=== PATIENT | male | born 1975 | race Hispanic/Latino ===

== ENCOUNTER 2024-04-22 07:46 | Emergency (ER) | payer OTHER ==
--- NOTE | 2024-04-22 08:17 | ER ---
Nurse's Notes [facility] Name: Te Acosta Age: 48 yrs Sex: Male : 1975 Arrival Date: 04/22/2024 Time: 07:46 Bed 5 Private MD: Diagnosis: Herpes zoster;Right sided chest pain;Right upper back pain Presentation: 04/22 08:05 Chief complaint: Patient states: superficial chest pain x1week. Coronavirus screen: At rs5 this time, the client does not indicate any symptoms associated with coronavirus-19. Ebola Screen: No symptoms or risks identified at this time. Initial Sepsis Screen: Does the patient meet any 2 criteria? No. Patient's initial sepsis screen is negative. Does the patient have a suspected source of infection? No. Patient's initial sepsis screen is negative. Risk Assessment: Do you want to hurt yourself or someone else? Patient reports no desire to harm self or others. Onset of symptoms was April 15, 2024. 08:05 Method Of Arrival: Ambulatory rs5 08:05 Acuity: TAYLOR 3 rs5 Triage Assessment: 07:54 General: Appears in no apparent distress. uncomfortable, Behavior is calm, cooperative. rs5 Pain: Complains of pain in chest. Cardiovascular: Patient's skin is warm and dry. Rhythm is regular. Historical: - Allergies: 08:06 No Known Allergies; rs5 - PMHx: 08:06 None; rs5 - PSHx: 08:06 right knee surgery; rs5 - Immunization history:: Adult Immunizations up to date. - Infectious Disease History:: Denies. - Social history:: Smoking status: Patient denies any tobacco usage or history of. Screenin:54 [facility] ED Fall Risk Assessment (Adult) History of falling in the last 3 months, rs5 including since admission No falls in past 3 months (0 pts) Confusion or Disorientation No (0 pts) Intoxicated or Sedated No (0 pts) Impaired Gait No (0 pts) Mobility Assist Device Used No (0 pt) Altered Elimination No (0 pt) Score/Fall Risk Level 0 - 2 = Low Risk Oriented to surroundings, Maintained a safe environment. 07:54 Abuse screen: Denies threats or abuse. Nutritional screening: No deficits noted. rs5 Tuberculosis screening: No symptoms or risk factors identified. Assessment: 07:54 General: Appears in no apparent distress. uncomfortable, Behavior is cooperative. Pain: rs5 Complains of pain in chest Pain does not radiate. Pain currently is 8 out of 10 on a pain scale. Quality of pain is described as aching, Pain began x1 week. Neuro: Level of Consciousness is awake, alert, obeys commands, Oriented to person, place, time, situation. Cardiovascular: Patient's skin is warm and dry. Rhythm is regular. Respiratory: Airway is patent Respiratory effort is even, unlabored, Respiratory pattern is regular, symmetrical. GI: Abdomen is round non-distended, Abd is soft and non tender X 4 quads. : No signs and/or symptoms were reported regarding the genitourinary system. EENT: No signs and/or symptoms were reported regarding the EENT system. Derm: Skin is intact, Skin is pink, warm \T\ dry. Musculoskeletal: Range of motion: intact in all extremities. 08:28 Reassessment: Patient and/or family updated on plan of care and expected duration. Pain rs5 level reassessed. Patient is alert, oriented x 3, equal unlabored respirations, skin warm/dry/pink. Patient states feeling better. Patient states symptoms have improved. Vital Signs: 08:05 BP 122 / 90; Pulse 80; Resp 18; Temp 98(O); Pulse Ox 99% on R/A; rs5 08:28 BP 128 / 88; Pulse 77; Resp 18; Pulse Ox 99% on R/A; rs5 ED Course: 07:49 Patient arrived in ED. ts1 07:53 Brad Jaimes, RN is Primary Nurse. rs5 07:54 Melissa Ritchie MD is Attending Physician. sd2 07:54 No provider procedures requiring assistance completed. rs5 07:54 Patient has correct armband on for positive identification. Placed in gown. Bed in low rs5 position. Call light in reach. Side rails up X2. Client placed on continuous cardiac and pulse oximetry monitoring. NIBP monitoring applied. dag coater on. Pulse ox on. 07:57 EKG done, by ED staff, reviewed by Melissa Ritchie MD. hb 08:00 Inserted saline lock: 22 gauge in left hand, using aseptic technique. rs5 08:06 Triage completed. rs5 08:30 IV discontinued, intact, bleeding controlled, No redness/swelling at site. Pressure rs5 dressing applied. Administered Medications: 08:15 Drug: Ketorolac IVP 15 mg IVP once Route: IVP; Site: left hand; rs5 08:28 Follow up: Response: No adverse reaction; Pain is decreased rs5 Medication: 08:28 VIS not applicable for this client. rs5 Outcome: 08:16 Discharge ordered by . sd2 08:30 Discharged to home ambulatory, rs5 08:30 Condition: stable 08:30 Discharge instructions given to patient, Instructed on discharge instructions, follow up and referral plans. medication usage, Demonstrated understanding of instructions, follow-up care, medications, Prescriptions given X 4, 08:34 Patient left the ED. rs5 Signatures: Rocío Gonzales RN RN hb Melissa Ritchie MD MD sd2 Brad Jaimes RN RN rs5 Leeann Marcano PAS PAS ts1 Corrections: (The following items were deleted from the chart) 08:03 08:02 Client placed on continuous cardiac and pulse oximetry monitoring. NIBP hb monitoring applied. dag coater on. Pulse ox on. NIBP on. hb 08:28 08:27 Ketorolac IVP 15 mg IVP in left hand rs5 rs5
--- NOTE | 2024-04-22 08:17 | EDPHYS ---
Physician Documentation [facility] Name: Te Acosta Age: 48 yrs Sex: Male : 1975 Arrival Date: 04/22/2024 Time: 07:46 Bed 5 Private MD: ED Physician Melissa Ritchie HPI: 04/22 08:08 This 48 yrs old Male presents to ER via Ambulatory with complaints of Chest sd2 Pain, Pain on right side of chest. 08:08 The patient or guardian reports chest pain that is located primarily in the anterior sd2 aspect of right upper chest. Onset: last week. The pain radiates to the right shoulder. Associated signs and symptoms: The patient has no apparent associated signs or symptoms. The chest pain is described as burning. Duration: The patient or guardian reports a single episode, that is still ongoing, and worsening. Modifying factors: The symptoms are alleviated by nothing. the symptoms are aggravated by activity, palpation of area. Associated rash noted to R scapular area; no diaphoresis, n/v. No recent travel; no prior cardiac hx. Historical: - Allergies: 08:06 No Known Allergies; rs5 - PMHx: 08:06 None; rs5 - PSHx: 08:06 right knee surgery; rs5 - Immunization history:: Adult Immunizations up to date. - Infectious Disease History:: Denies. - Social history:: Smoking status: Patient denies any tobacco usage or history of. ROS: 08:08 Constitutional: Negative for fever, chills, and weight loss, Eyes: Negative for injury, sd2 pain, redness, and discharge, Cardiovascular: Positive for chest pain, Negative for palpitations, and edema, Respiratory: Negative for shortness of breath, cough, wheezing. Abdomen/GI: Negative for abdominal pain, nausea, vomiting, diarrhea. Back: Negative for injury and positive for pain, MS/Extremity: Negative for injury and deformity, Skin: Negative for injury, Positive for rash, and discoloration, Neuro: Negative for headache, numbness and tingling. Exam: 08:08 Constitutional: This is a well developed, well nourished patient who is awake, alert, sd2 and in no acute distress. Head/Face: Normocephalic, atraumatic. Eyes: EOMI, normal conjunctiva bilaterally Chest/axilla: Normal chest wall appearance and motion. Hyperesthetic with palpation of the R anterior and posterior chest wall Cardiovascular: Regular rate and rhythm with a normal S1 and S2. No gallops, murmurs, or rubs. 2+ distal pulses. Respiratory: Lungs have equal breath sounds bilaterally, clear to auscultation and percussion. No rales, rhonchi or wheezes noted. No increased work of breathing, no retractions or nasal flaring. Abdomen/GI: Soft, non-tender, with normal bowel sounds. No guarding or rebound. No evidence of tenderness throughout. Skin: Warm, dry with normal turgor. Vesicular rash noted to the R mid back area overlying the scapula with TTP, blanching MS/ Extremity: Pulses equal, no cyanosis. Neurovascular intact. Full, normal range of motion. Psych: Awake, alert, with orientation to person, place and time. Behavior, mood, and affect are within normal limits. 08:08 ECG was reviewed by the Attending Physician. NSR, rate 69, no STEMI criteria or significant ST-T wave changes Vital Signs: 08:05 BP 122 / 90; Pulse 80; Resp 18; Temp 98(O); Pulse Ox 99% on R/A; rs5 08:28 BP 128 / 88; Pulse 77; Resp 18; Pulse Ox 99% on R/A; rs5 MDM: 07:54 Patient medically screened. sd2 08:08 Differential diagnosis: acute myocardial infarction, coronary artery disease chest wall sd2 pain, gastritis, herpes zoster, pericarditis, pleurisy, pneumonia, pulmonary embolus, thoracic aortic disection, among others. The patient was not given aspirin in the Emergency Department. Data reviewed: vital signs, nurses notes, EKG. I considered the following discharge prescriptions or medication management in the emergency department Medications were administered in the Emergency Department. See MAR. Independent interpretation of the following test(s) in the Emergency Department EKG: See my EKG interpretation above. Test considered but Not performed: Labs: labs and XR considered but pt declined after discovering shingles rash as this is most likely source of patient's pain. X-ray: . Counseling: I had a detailed discussion with the patient and/or guardian regarding the historical points, exam findings, and any diagnostic results supporting the discharge/admit diagnosis, the need for outpatient follow up, to return to the emergency department if symptoms worsen or persist or if there are any questions or concerns that arise at home. ED course: Clinical presentation consistent with shingles. Pt with no significant risk factors for CAD at this time. Pt declined further workup. Will tx with Toradol here and antivirals and steroids at home. Pt comfortable with plan for discharge and outpatient follow up. Verbalizes understanding of discharge plan and strict return precautions.. Administered Medications: 08:15 Drug: Ketorolac IVP 15 mg IVP once Route: IVP; Site: left hand; rs5 08:28 Follow up: Response: No adverse reaction; Pain is decreased rs5 Disposition Summary: 04/22/24 08:16 Discharge Ordered Problem: new sd2 Symptoms: have improved sd2 Condition: Stable sd2 Diagnosis - Herpes zoster sd2 - Right sided chest pain sd2 - Right upper back pain sd2 Followup: sd2 - With: Private Physician - When: 2 - 3 days - Reason: Recheck today's complaints, Continuance of care, Re-evaluation by your physician Discharge Instructions: - Discharge Summary Sheet sd2 Forms: - Medication Reconciliation Form sd2 - Antibiotic Education sd2 - Prescription Opioid Use sd2 - Patient Portal Instructions sd2 - Leadership Thank You Letter sd2 Prescriptions: - valacyclovir 1 gram Oral tablet - take 1 tablet ORAL route every 8 hours for 7 days; 21 tablet; Refills: 0, sd2 Product Selection Permitted - Ibuprofen 800 mg Oral Tablet - take 1 tablet ORAL route every 8 hours As needed take with food; 30 tablet; sd2 Refills: 0, Product Selection Permitted - Tramadol 50 mg Oral tablet - take 1 tablet ORAL route every 6 hours As needed as needed; 12 tablet; Refills: sd2 0, Product Selection Permitted - Medrol (Nilay) 4 mg Oral Tablets, Dose Pack - take 1 tablet ORAL route as directed - follow package instructions; 1 packet; sd2 Refills: 0, Product Selection Permitted Signatures: Melissa Ritchie MD MD sd2 Brad Jaimes RN RN rs5
[2024-04-22] MEDS ORDERED: KETOROLAC 30 MG/ML INJ ONE (08:22)
[2024-04-22 08:55] VITALS: BP 128/88; TEMP 98; O2SAT 99
--- NOTE | 2024-04-24 13:24 | EKG ---
Test Date: 2024-04-22 Test Time: 08:01:36 Power Manager: ESTEVAN MEASUREMENT RESULTS: Intervals: Rate: 69 FL: 152 QRSD: 110 QT: 430 QTc: 460 [place]: P: 58 FL: 152 QRS: 91 T: 69 INTERPRETIVE STATEMENTS: Normal sinus rhythm Rightward axis Incomplete right bundle branch block Borderline ECG Compared to ECG 10/11/2016 16:50:29 Right-axis deviation now present Sinus tachycardia no longer present Electronically Signed On 04-24-24 13:19:59 CDT by Mayco Cook
== END 2024-04-22 08:34 | disposition home or self-care (01) ==
LOC: ER 07:46
DX: R07.9 Chest pain, unspecified (principal); M54.9 Dorsalgia, unspecified; B02.9 Zoster without complications
CPT/HCPCS: 93005; 96374; 99285